=== PATIENT | female | born 1965 | race African-American/Black ===

== ENCOUNTER 2019-02-20 13:48 | Emergency (ER) | payer MEDICAID ==
[~2019-02-20] VITALS: Ht 170.2 cm; Wt 87.0 kg
[2019-02-20 15:20] LABS: HEMATOCRIT. 29.9 % (36.0-48.0); HEMOGLOBIN. 9.8 g/dL (12.0-16.0); MEAN CORPUSCULAR HEMOGLOBIN 26.7 pg (28.0-32.0); MEAN CORPUSCULAR VOLUME 81.5 fL (81.0-99.0); MEAN PLATELET VOLUME 7.9 fl (7.4-10.4); PLATELET 501 x1000/uL (130-400); RED BLOOD CELL COUNT 3.66 mill/uL (4.2-5.4); RED CELL DISTRIBUTION WIDTH 18.9 % (11.6-14.6)
[2019-02-20 15:26] LABS: CHLORIDE 110 mEq/L (98-107)
[2019-02-20 15:37] LABS: B-HCG QUANTITATIVE < 1 mIU/mL (<3)
[2019-02-20 16:50] LABS: PLATELET ESTIMATE INCREASED
[2019-02-20] MEDS ORDERED: MORPHINE SULFATE 4 MG/ML CPJ (NOT FOR IM USE) IV ONE (20:45)
[2019-02-20 23:02] LABS: CLARITY URINE CLEAR (CLEAR); COLOR URINE YELLOW (YELLOW); KETONES URINE 2+ (NEGATIVE); LEUKOCYTE ESTERASE URINE NEGATIVE (NEGATIVE); NITRITE URINE POSITIVE (NEGATIVE); OCCULT BLOOD URINE 3+ (NEGATIVE); PROTEIN URINE TRACE (NEGATIVE); SPECIFIC GRAVITY URINE 1.071 (1.005-1.030); UROBILINOGEN URINE 0.2 E.U./dL (0.2-1.0)
[2019-02-20] MEDS ORDERED: CEFTRIAXONE 1 G PREMIX 50 ML IV SCH (23:15)
[2019-02-20 23:30] VITALS: BP 147/86
== END 2019-02-21 | disposition home or self-care (01) ==
LOC: ER 13:59
DX: R10.31 Right lower quadrant pain (principal); N93.9 Abnormal uterine and vaginal bleeding, unspecified; R11.2 Nausea with vomiting, unspecified; I10 Essential (primary) hypertension; D64.9 Anemia, unspecified; F12.10 Cannabis abuse, uncomplicated; Z98.890 Other specified postprocedural states
CPT/HCPCS: 36415; 74177; 76830; 76856; 80053; 81003; 84702; 85025; 86850; 86900; 86901; 96365; 96375; 99284; J0696; J2270; Z7610

== ENCOUNTER 2020-02-07 05:18 | Emergency (ER) | payer MEDICAID ==
[~2020-02-07] VITALS: Ht 167.6 cm; Wt 70.0 kg
[2020-02-07 05:22] VITALS: BP 182/92
== END 2020-02-07 07:06 | disposition home or self-care (01) ==
LOC: ER 05:18
DX: R05 Cough (principal); Z20.828 Contact with and (suspected) exposure to other viral communicable diseases; I10 Essential (primary) hypertension; F12.10 Cannabis abuse, uncomplicated
CPT/HCPCS: 87635; 99283; C9803

== ENCOUNTER 2020-02-15 14:05 | Emergency (ER) | payer MEDICAID ==
[~2020-02-15] VITALS: Ht 167.6 cm; Wt 75.0 kg
[2020-02-15 16:10] VITALS: BP 140/82
== END 2020-02-15 16:30 | disposition home or self-care (01) ==
LOC: ER 14:05
DX: J06.9 Acute upper respiratory infection, unspecified (principal); D64.9 Anemia, unspecified; F12.10 Cannabis abuse, uncomplicated; Z98.890 Other specified postprocedural states
CPT/HCPCS: 87635; 99283; C9803

== ENCOUNTER 2023-02-18 15:09 | Emergency (ER) | payer MEDICAID ==
[~2023-02-18] VITALS: Ht 172.7 cm; Wt 81.6 kg
[2023-02-18 15:33] VITALS: TEMP 98.9; O2SAT 96
[2023-02-18] MEDS ORDERED: TRAMADOL 50MG TABLET PO ONE (17:45)
[2023-02-18] MEDS ORDERED: KETOROLAC 60MG/2ML VIAL IM ONE (17:45)
[2023-02-18] MEDS ORDERED: SODIUM CHLORIDE 0.9% 1,000 ML IV ONE (17:45)
[2023-02-18] MEDS ORDERED: TRAMADOL 50MG TABLET PO NR (17:47)
[2023-02-18 17:57] VITALS: BP 147/92; PULSE 104; RESP 18
[2023-02-18 20:37] LABS: CLARITY URINE CLEAR (CLEAR); COLOR URINE YELLOW (YELLOW); GLUCOSE URINE NEGATIVE (NEGATIVE); KETONES URINE 2+ (NEGATIVE); PROTEIN URINE NEGATIVE (NEGATIVE); SPECIFIC GRAVITY URINE 1.005 (1.005-1.030)
[2023-02-18 20:38] LABS: LEUKOCYTE ESTERASE URINE NEGATIVE (NEGATIVE); NITRITE URINE NEGATIVE (NEGATIVE); OCCULT BLOOD URINE 1+ (NEGATIVE); UROBILINOGEN URINE 0.2 E.U./dL (0.2-1.0)
[2023-02-18 20:43] LABS: BACTERIA URINE 1+; SQUAMOUS EPITHELIAL CELL URINE 1+ /lpf (RARE/1+)
[2023-02-18 20:44] LABS: RBC URINE 0-2 /hpf (0-2)
[2023-02-18 22:10] LABS: BASOPHILS % 0.7 % (0.0-2.0); EOSINOPHILS % 0.1 % (0.0-5.0); HEMATOCRIT. 37.2 % (36.0-48.0); HEMOGLOBIN. 12.5 g/dL (12.0-16.0); LYMPHOCYTES % 7.6 % (20.0-50.0); MEAN CORPUSCULAR HEMOGLOBIN 30.6 pg (28.0-32.0); MEAN CORPUSCULAR HGB CONC 33.5 g/dL (31.0-37.0); MEAN CORPUSCULAR VOLUME 91.2 fL (81.0-99.0); MEAN PLATELET VOLUME 8.2 fl (7.4-10.4); MONOCYTES % 12.1 % (2.0-8.0); NEUTROPHILS % 79.5 % (40.0-76.0); PLATELET 258 x1000/uL (130-400); RED BLOOD CELL COUNT 4.08 mill/uL (4.2-5.4); RED CELL DISTRIBUTION WIDTH 15.7 % (11.6-14.6); WHITE BLOOD COUNT 4.5 x1000/uL (4.5-11.0)
[2023-02-18 22:36] LABS: ALANINE AMINOTRANSFERASE 19 IU/L (10-49); ALBUMIN 4.2 g/dL (3.2-4.8); ASPARTATE AMINOTRANSFERASE 29 IU/L (<34); BILIRUBIN TOTAL 0.3 mg/dL (0.1-1.0); CALCIUM 8.7 mg/dL (8.7-10.4); CARBON DIOXIDE 23 mEq/L (21-32); CHLORIDE 106 mEq/L (98-107); CREATININE 0.6 mg/dL (0.6-1.0); GLUCOSE 105 mg/dL (70-105); POTASSIUM 3.5 mEq/L (3.5-5.1); PROTEIN TOTAL 6.6 g/dL (6.0-8.3); SODIUM 140 mEq/L (136-145); UREA NITROGEN BLOOD 5 mg/dL (9-23)
[2023-02-18 22:44] LABS: ERYTHROCYTE SEDIMENTATION RATE 6 mm/hr (0-30)
[2023-02-18] MEDS ORDERED: IBUP-2030 MT (23:23)
== END 2023-02-18 23:45 | disposition home or self-care (01) ==
LOC: ER 15:09
DX: M79.10 Myalgia, unspecified site (principal); R51.9 Headache, unspecified; M54.2 Cervicalgia; F12.10 Cannabis abuse, uncomplicated; D64.9 Anemia, unspecified; I10 Essential (primary) hypertension
CPT/HCPCS: 80053; 81003; 81025; 83605; 85025; 85651; 36415; 96360; 96372; 99283; J1885; J7030; Z7610 ×2